=== PATIENT | female | born 1995 | race Caucasian/White ===

== ENCOUNTER 2018-11-09 19:46 | Emergency (ER) | payer OTHER, MEDICAID, SELFPAY ==
[2018-11-09 19:51] VITALS: BP 127/90; PULSE 89; RESP 18; TEMP 37.7; O2SAT 100
--- NOTE | 2018-11-09 22:56 | ED.DENTAL ---
HPI - Dental/Oral General Chief complaint: Dental/Oral Stated complaint: TEETH HURT BAD Time Seen by Provider: 11/09/18 22:56 Source: patient Mode of arrival: ambulatory Limitations: no limitations History of Present Illness HPI Narrative: The patient complains of left maxillary dental pain, exacerbated today. She has no associated facial swelling, or fever. The tooth has had problems previously, she has never followed up with a dentist. There been no fractures to the tooth that the tooth does have a large cavity. She has no associated URI symptoms. She has no sore throat. She has no chest pain or dyspnea. Related Data Home Medications Medication Instructions Recorded Confirmed ACETAMINOPHEN 650 mg PO Q6HP #0 12/31/11 ibuprofen #0 12/31/11 Previous Rx's Medication Instructions Recorded amoxicillin 500 mg PO TID #26 cap 11/09/18 ibuprofen 600 mg PO Q6-8H PRN #30 tab 11/09/18 Allergies Allergy/AdvReac Type Severity Reaction Status Date / Time No Known Drug Allergies Allergy Verified 11/09/18 19:54 Review of Systems Constitutional Denies anorexia, Denies chills and Denies fever(s) ENT Ears, Nose, Mouth, and Throat: Reports as per HPI (Dental pain) and Denies sore throat Cardiovascular Denies chest pain PFSH Medical History (Updated 11/09/18 @ 23:09 by Noah Christianson MD) No active medical problems (Acute) Surgical History (Updated 11/09/18 @ 23:05 by Noah Christianson MD) No pertinent past surgical history (Acute) Social History Smoking Status: Current every day smoker Social History Smoking Status: Current every day smoker Exam Initial Vital Signs Initial Vital Signs: Vital Signs Temperature 99.8 F H 11/09/18 19:51 Pulse Rate 89 11/09/18 19:51 Respiratory Rate 18 11/09/18 19:51 Blood Pressure 127/90 11/09/18 19:51 Pulse Oximetry 100 11/09/18 19:51 Const General: cooperative and well developed Nutritional Appearance: well nourished Orientation: alert, awake and oriented x3 HENMT Head: normocephalic and atraumatic Face and sinus: sinuses nontender and dry mucous membranes Mouth: oral mucosae normal and lip normal Teeth and gingiva: caries (Tooth 14. Pain with palpation of the tooth consistent with dental abscess.) Throat: posterior oropharynx normal, tonsils normal and uvula midline Cardio Rate: regular rate Rhythm: regular rhythm Heart Sounds: no click, no gallops, no murmurs and no rubs Course Course Narrative: The patient was given Toradol IM for pain. She was started on Amoxicillin and discharged on Amoxicillin and Ibuprofen. Vital Signs - 8 hr 11/09/18 19:51 Temperature 99.8 F H Pulse Rate 89 Respiratory Rate 18 Blood Pressure 127/90 Pulse Oximetry 100 Discharge Plan Departure Patient Disposition: Home Clinical Impression: Dental abscess Instructions: Tooth Abscess Activity Restrictions/Additional Instructions: Some amoxicillin 500 mg 3 times daily. Motrin every 6 hours as needed for pain. Apply ice packs to the left face frequently for the next 2-3 days, until pain is improved. Arrange follow-up with a dentist in about 2 weeks. Return the ER for increasing pain, or facial swelling. Prescriptions: New amoxicillin 500 mg capsule 500 mg PO TID Qty: 26 RF: 0 ibuprofen 600 mg tablet 600 mg PO Q6-8H PRN (Reason: pain) Qty: 30 RF: 0 No Action ACETAMINOPHEN 650 mg PO Q6HP Qty: 0 RF: 0 ibuprofen 200 MG tablet Qty: 0 RF: 0
[2018-11-09] MEDS: KETOROLAC 60 MG/2 ML VIAL IM (23:10)
[2018-11-09] MEDS: AMOXICILLIN 250 MG PREPACK 1 BOTTLE MISC (23:10)
[2018-11-09 23:17] VITALS: BP 116/60; PULSE 55; RESP 16; TEMP 36.4; O2SAT 100
== END 2018-11-09 23:17 | disposition home or self-care (01) ==
PROVIDERS: Emergency Provider Emergency Medicine
DX: K04.7 Periapical abscess without sinus (principal); K08.89 Other specified disorders of teeth and supporting structures
CPT/HCPCS: 96372; 99282; 99283; J1885

== ENCOUNTER 2018-11-10 14:00 | Emergency (ER) | payer OTHER, MEDICAID, SELFPAY ==
[2018-11-10 14:44] VITALS: BP 125/81; PULSE 66; RESP 18; TEMP 36.7; O2SAT 100
--- NOTE | 2018-11-10 15:21 | ED.DENTAL ---
HPI - Dental/Oral <Ashia Hui PA-C - Last Filed: 11/10/18 21:28> General Chief complaint: Dental/Oral Stated complaint: abscess tooth Time Seen by Provider: 11/10/18 14:57 Source: patient Mode of arrival: ambulatory Limitations: no limitations History of Present Illness HPI Narrative: This 23-year-old female who was seen here last night for dental pain/infection returns due to increased pain. she did start amoxicillin and has been taking ibuprofen. She states that she left work about 40 minutes early today due to the tooth hurting more. She states that she has not had any new swelling, fever, drainage from the gums or any other new symptoms. She states that she did call dentist today and was told she can be seen at [facility] in [place], as long she is there by 7 Related Data Previous Rx's Medication Instructions Recorded amoxicillin 500 mg PO TID #26 cap 11/09/18 ibuprofen 600 mg PO Q6-8H PRN #30 tab 11/09/18 Allergies Allergy/AdvReac Type Severity Reaction Status Date / Time No Known Drug Allergies Allergy Verified 11/10/18 14:44 Review of Systems <Ashia Hui PA-C - Last Filed: 11/10/18 21:28> Review of Systems ROS Unobtainable: All systems reviewed & are unremarkable except as noted in HPI and below PFSH <Ashia Hui PA-C - Last Filed: 11/10/18 21:28> Medical History No active medical problems (Acute) Surgical History No pertinent past surgical history (Acute) Social History Smoking Status: Current every day smoker Social History Smoking Status: Current every day smoker Exam <Ashia Hui PA-C - Last Filed: 11/10/18 21:28> Narrative Exam Narrative: General: Patient sitting comfortably, appears well HEENT: PERRL, EOMI, TMs intact with normal light reflexes, normal oropharynx, there is a partial break in the posterior part of the left upper molar, and she is tender there as well as in the surrounding gum tissue. There is no erythema, localized fluctuance or drainage from the gums NECK: Supple, normal range of motion, no masses Initial Vital Signs Initial Vital Signs: Vital Signs Temperature 98.0 F 11/10/18 14:44 Pulse Rate 66 11/10/18 14:44 Respiratory Rate 18 11/10/18 14:44 Blood Pressure 125/81 11/10/18 14:44 Pulse Oximetry 100 11/10/18 14:44 <Laura Smith DO - Last Filed: 11/13/18 20:44> Initial Vital Signs Initial Vital Signs: Vital Signs Temperature 98.0 F 11/10/18 14:44 Pulse Rate 66 11/10/18 14:44 Respiratory Rate 18 11/10/18 14:44 Blood Pressure 125/81 11/10/18 14:44 Pulse Oximetry 100 11/10/18 14:44 Course <Ashia Hui PA-C - Last Filed: 11/10/18 21:28> Vital Signs - 8 hr 11/10/18 14:44 Temperature 98.0 F Pulse Rate 66 Respiratory Rate 18 Blood Pressure 125/81 Pulse Oximetry 100 <DO Ramos Cameron Last Filed: 11/13/18 20:44> Vital Signs - 8 hr 11/10/18 14:44 Temperature 98.0 F Pulse Rate 66 Respiratory Rate 18 Blood Pressure 125/81 Pulse Oximetry 100 Discharge Plan Departure Patient Disposition: Home Clinical Impression: Pain, dental Discharge Date/Time: 11/10/18 15:42 Interventions: ED Discharge Assessment Last Done: 11/10/18 15:41 Instructions: DI for Dental Pain Activity Restrictions/Additional Instructions: Your gums seen tender but do not appear very inflamed right now, however the tooth where you are hurting is irregular/broken and that is close to the gum line. You may have some of the pulpy part of the tooth where the nerves are exposed, and that can be quite painful. For now, please continue the ibuprofen and amoxicillin (that has not had much time to start working at as it takes about 48-72 hours), and when you leave here please go by a pharmacy and worm picker some Orajel or similar topical anesthetic which you can put around the broken tooth. [facility] go [facility] to [facility] as you have planned Prescriptions: No Action amoxicillin 500 mg capsule 500 mg PO TID Qty: 26 RF: 0 ibuprofen 600 mg tablet 600 mg PO Q6-8H PRN (Reason: pain) Qty: 30 RF: 0 Referrals: [facility] [Provider Group] <Laura Smith DO - Last Filed: 11/13/18 20:44> Cosign ED Attending Cosjadature Attestation: I was immediately available in the department for consultation. This documentation has been reviewed and I agree with assessment and plan. Supervised by Laura Smith DO
--- NOTE | 2018-11-10 15:39 | ED_ITS ---
HPI - Dental/Oral <Ashia Hui PA-C - Last Filed: 11/10/18 21:28> General Chief complaint: Dental/Oral Stated complaint: abscess tooth Time Seen by Provider: 11/10/18 14:57 Source: patient Mode of arrival: ambulatory Limitations: no limitations History of Present Illness HPI Narrative: This 23-year-old female who was seen here last night for dental pain/infection returns due to increased pain. she did start amoxicillin and has been taking ibuprofen. She states that she left work about 40 minutes early today due to the tooth hurting more. She states that she has not had any new swelling, fever, drainage from the gums or any other new symptoms. She states that she did call dentist today and was told she can be seen at [facility] in [place], as long she is there by 7 Related Data Previous Rx's Medication Instructions Recorded amoxicillin 500 mg PO TID #26 cap 11/09/18 ibuprofen 600 mg PO Q6-8H PRN #30 tab 11/09/18 Allergies Allergy/AdvReac Type Severity Reaction Status Date / Time No Known Drug Allergies Allergy Verified 11/10/18 14:44 Review of Systems <Ashia Hui PA-C - Last Filed: 11/10/18 21:28> Review of Systems ROS Unobtainable: All systems reviewed & are unremarkable except as noted in HPI and below PFSH <Ashia Hui PA-C - Last Filed: 11/10/18 21:28> Medical History No active medical problems (Acute) Surgical History No pertinent past surgical history (Acute) Social History Smoking Status: Current every day smoker Social History Smoking Status: Current every day smoker Exam <Ashia Hui PA-C - Last Filed: 11/10/18 21:28> Narrative Exam Narrative: General: Patient sitting comfortably, appears well HEENT: PERRL, EOMI, TMs intact with normal light reflexes, normal oropharynx, there is a partial break in the posterior part of the left upper molar, and she is tender there as well as in the surrounding gum tissue. There is no erythema, localized fluctuance or drainage from the gums NECK: Supple, normal range of motion, no masses Initial Vital Signs Initial Vital Signs: Vital Signs Temperature 98.0 F 11/10/18 14:44 Pulse Rate 66 11/10/18 14:44 Respiratory Rate 18 11/10/18 14:44 Blood Pressure 125/81 11/10/18 14:44 Pulse Oximetry 100 11/10/18 14:44 <Laura Smith DO - Last Filed: 11/13/18 20:44> Initial Vital Signs Initial Vital Signs: Vital Signs Temperature 98.0 F 11/10/18 14:44 Pulse Rate 66 11/10/18 14:44 Respiratory Rate 18 11/10/18 14:44 Blood Pressure 125/81 11/10/18 14:44 Pulse Oximetry 100 11/10/18 14:44 Course <Ashia Hui PA-C - Last Filed: 11/10/18 21:28> Vital Signs - 8 hr 11/10/18 14:44 Temperature 98.0 F Pulse Rate 66 Respiratory Rate 18 Blood Pressure 125/81 Pulse Oximetry 100 <DO Ramos Cameron Last Filed: 11/13/18 20:44> Vital Signs - 8 hr 11/10/18 14:44 Temperature 98.0 F Pulse Rate 66 Respiratory Rate 18 Blood Pressure 125/81 Pulse Oximetry 100 Discharge Plan Departure Patient Disposition: Home Clinical Impression: Pain, dental Discharge Date/Time: 11/10/18 15:42 Interventions: ED Discharge Assessment Last Done: 11/10/18 15:41 Instructions: DI for Dental Pain Activity Restrictions/Additional Instructions: Your gums seen tender but do not appear very inflamed right now, however the tooth where you are hurting is irregular/broken and that is close to the gum line. You may have some of the pulpy part of the tooth where the nerves are exposed, and that can be quite painful. For now, please continue the ibuprofen and amoxicillin (that has not had much time to start working at as it takes about 48-72 hours), and when you leave here please go by a pharmacy and picker/puller some Orajel or similar topical anesthetic which you can put around the broken tooth. Please go right to [facility] as you have planned Prescriptions: No Action amoxicillin 500 mg capsule 500 mg PO TID Qty: 26 RF: 0 ibuprofen 600 mg tablet 600 mg PO Q6-8H PRN (Reason: pain) Qty: 30 RF: 0 Referrals: [facility] [Provider Group] <Laura Smith DO - Last Filed: 11/13/18 20:44> Cosign ED Attending Cosjadature Attestation: I was immediately available in the department for consultation. This documentation has been reviewed and I agree with assessment and plan. Supervised by Laura Smith DO
== END 2018-11-10 15:42 | disposition home or self-care (01) ==
PROVIDERS: Emergency Provider Internal Medicine
DX: K08.89 Other specified disorders of teeth and supporting structures (principal)
CPT/HCPCS: 99282

== ENCOUNTER → 2019-03-11 09:13 | Outpatient (CLI) | payer OTHER, MEDICAID, SELFPAY ==
[2019-03-11 10:18] LABS: HCG Quantitative /Beta subunit 8488.9 mIU/mL
== END ==
PROVIDERS: Visit Provider Physician Assistant
DX: Z32.01 Encounter for pregnancy test, result positive (principal)
CPT/HCPCS: 36415; 84702

== ENCOUNTER → 2019-09-10 08:32 | Outpatient (CLI) | payer OTHER, MEDICAID, SELFPAY ==
[2019-09-10 08:50] LABS: Bacteria Urine None Seen; RBC Urine None Seen (0-5/HPF)
[2019-09-10 10:31] LABS: Appearance Urine UA CLEAR; Bilirubin Urine UA NEGATIVE (NEGATIVE); Color Urine UA YELLOW; Glucose Urine UA NEGATIVE (Negative); Ketones Urine UA NEGATIVE (NEGATIVE); Leukocyte Esterase Urine UA TRACE (NEGATIVE); Nitrite Urine UA NEGATIVE (Negative); Occult Blood Urine UA NEGATIVE (Negative); Protein Urine UA NEGATIVE (Negative); Urobilinogen Urine UA 0.2 E.U./dL (0.2)
[2019-09-10 10:44] LABS: Squamous Epithelial Cell Urine 5-10 /HPF (0-5/HPF); WBC Urine 5-10/HPF (0-5/HPF)
[2019-09-10 10:53] LABS: Hematocrit 40.3 % (36-46); Hemoglobin 13.4 g/dL (12.0-16.0); Mean Corpuscular HGB Conc 33.3 % (30-36); Mean Corpuscular Hemoglobin 29.9 PG (26-34); Mean Corpuscular Volume 89.7 fL (80-100); Platelet Count 247 X10^3/uL (150-400); Red Blood Cell Count 4.49 X10^6/uL (4.0-5.2); Red Cell Distribution Width 12.5 % (11.6-14.8); White Blood Cell Count 7.6 X10^3/uL (4.5-11.0)
[2019-09-10 11:07] LABS: Alanine Aminotransferase 13 IU/L (<35); Albumin 4.2 g/dL (3.5-5.0); Albumin Globulin Ratio 1.4 (1.0-2.8); Alkaline Phosphatase 62 U/L (38-126); Aspartate Aminotransferase 23 IU/L (14-36); BUN Creatinine Ratio 17.1 (6-22); Bilirubin Total 0.3 mg/dL (0.2-1.3); Blood Urea Nitrogen 12 mg/dL (7-17); Calcium 9.5 mg/dL (8.4-10.2); Carbon Dioxide 27 mmol/L (22-32); Chloride 105 mmol/L (98-107); Cholesterol 126 mg/dL (140-199); Estimated Glomerular Filt Rate > 60.0 mL/min (>60); Globulin 3.1 g/dL (1.7-4.1); Glucose 89 mg/dL (70-100); HDL Cholesterol 41 mg/dL (40-60); HEMOLYSIS < 15 (0-50); LDL Cholesterol Calculated 57 mg/dL (<100); Potassium 4.1 mmol/L (3.4-5.1); Sodium 141 mmol/L (137-145); Total Protein 7.3 g/dL (6.3-8.2); Triglycerides 140 mg/dL (35-150)
== END ==
PROVIDERS: PCP Nurse Practitioner Family; Referring Provider Nurse Practitioner Family; Visit Provider Nurse Practitioner Family
DX: Z00.00 Encounter for general adult medical examination without abnormal findings (principal); Z13.6 Encounter for screening for cardiovascular disorders
CPT/HCPCS: 36415; 80053; 80061; 81001; 85027

== ENCOUNTER 2019-09-20 23:19 | Emergency (ER) | payer OTHER, MEDICAID, SELFPAY ==
[2019-09-20 23:24] VITALS: BP 141/85; PULSE 80; RESP 18; TEMP 36.3; O2SAT 99
--- NOTE | 2019-09-20 23:30 | PC.NURSE ---
patient states she was seen in urgent care and prescribed ammoxicillin. She states she has not missed a dose and has three more days left. Comes in today with increased pain in tooth #32 after eating a cracker. The tooth appears to be half broken off with root/nerve showing. Provider at bedside.
--- NOTE | 2019-09-20 23:41 | ED_ITS ---
HPI - General Adult General Chief complaint: Dental/Oral Stated complaint: painful teeth right side Time Seen by Provider: 09/20/19 23:26 Source: patient Mode of arrival: Ambulatory Limitations: no limitations History of Present Illness HPI narrative: 24-year-old female here for evaluation of right lower back tooth pain. Approximately 1 week ago was seen in urgent care and was given antibiotics. She states she was eating something earlier today and felt more pain in this back tooth. She has not seen a dentist yet for her symptoms. Came in because of the increased pain. Related Data Previous Rx's Medication Instructions Recorded ibuprofen 600 mg PO Q6-8H PRN #30 tab 11/09/18 clindamycin phosphate 1 % topical 1 applictn TOP DAILY #30 gram 09/09/19 gel drospirenone 3 mg-ethinyl 1 tab PO DAILY #84 tab 09/09/19 estradiol 0.03 mg tablet Allergies Allergy/AdvReac Type Severity Reaction Status Date / Time No Known Drug Allergies Allergy Verified 09/10/19 10:45 Review of Systems Constitutional Constitutional: Denies fever(s) and Denies headache(s) ENT Ears, Nose, Mouth, and Throat: Reports dental pain, Denies headache(s), Denies sore throat and Denies throat swelling Cardiovascular Cardiovascular: Denies dyspnea Respiratory Respiratory: Denies dyspnea Integumentary/Breasts Skin/Breast: Denies rash Neurologic Neurologic: Denies headache(s) Hematologic/Lymphatic Hematologic/Lymphatic: Denies easy bleeding and Denies easy bruising Allergic/Immunologic Allergic/Immunologic: Denies throat swelling Patient History Medical History Encounter for surveillance of contraceptive pills (Acute) Gout (Inactive ~2013) No active medical problems (Acute) Surgical History No pertinent past surgical history (Acute) Social History Smoking Status: Former smoker second hand exposure: Yes alcohol intake: never substance use type: does not use Smoking Status: Former smoker alcohol intake frequency: 0-2 drinks per day Substance Use Type: does not use Exam Initial Vital Signs Initial Vital Signs: Vital Signs Temperature 97.4 F L 09/20/19 23:24 Pulse Rate 80 09/20/19 23:24 Respiratory Rate 18 09/20/19 23:24 Blood Pressure 141/85 H 09/20/19 23:24 Pulse Oximetry 99 09/20/19 23:24 Const General: cooperative Limitations: mental status not altered HENMT Head: normal to inspection and normocephalic Nose: external nose normal Teeth and gingiva: caries (Right bottom 3rd molar) Resp Effort & Inspection: normal respiratory effort Skin Lesions: no lesions Rashes: no rashes Neuro General: alert and awake Extrem General: normal to inspection and capillary refill normal Course Orders Ordered: Discontinued Medications Acetaminophen/Codeine Phosphate (Tylenol #3 Prepack) 1 bottle MISC SEEINSTR ONE Stop: 09/20/19 23:41 Last Admin: 09/20/19 23:49 Dose: 1 bottle Documented by: VAUGHN Vital Signs Vital signs: Vital Signs - 8 hr 09/20/19 23:24 Temperature 97.4 F L Pulse Rate 80 Respiratory Rate 18 Blood Pressure 141/85 H Pulse Oximetry 99 Medical Decision Making [facility] Narrative Medical decision making narrative: The bottom right 3rd molar does appear to have a portion of the tooth missing. A temporary dental packing was placed over the area. Patient was informed that this is not necessarily a permanent issue. She was instructed she need to continue to take the antibiotics and needed to follow-up with a dentist for definitive treatment. If you wrist understanding and agreement plan. Discharge Plan Departure Patient Disposition: Home Clinical Impression: Toothache Discharge Date/Time: 09/20/19 23:53 Instructions: DI for Dental Pain Activity Restrictions/Additional Instructions: Continue the antibiotics as directed. Use the pain medication as needed. It is important that you follow-up with the dentist for definitive treatment. Return to the emergency department for any new or worsening symptoms Prescriptions: No Action drospirenone-ethinyl estradiol [Viry (28)] 3-0.03 mg tablet 1 tab PO DAILY Qty: 84 RF: 3 clindamycin phosphate 1 % gel 1 applictn TOP DAILY Qty: 30 RF: 2 ibuprofen 600 mg tablet 600 mg PO Q6-8H PRN (Reason: pain) Qty: 30 RF: 0 Referrals: Liliya Norton ARNP [Primary Care Provider] -
[2019-09-20] MEDS: CODEINE/APAP 30/300 PREPACK 1 BOTTLE MISC (23:49)
== END 2019-09-20 23:53 | disposition home or self-care (01) ==
PROVIDERS: Emergency Provider Emergency Medicine; PCP Nurse Practitioner Family
DX: K08.89 Other specified disorders of teeth and supporting structures (principal)
CPT/HCPCS: 99281

== ENCOUNTER → 2020-04-19 13:30 | Outpatient (CLI) | payer OTHER, MEDICAID, SELFPAY ==
--- NOTE | 2020-04-19 13:31 | DI.US.S_ITS ---
PROCEDURE: US PERIPH VENOUS LOW EXTREM LT INDICATIONS: possible dvt TECHNIQUE: Real-time imaging, as well as color and pulse Doppler interrogation, were performed of the lower extremity deep veins from the inguinal ligament to the popliteal fossa. COMPARISON: None. FINDINGS: The common femoral, femoral and popliteal veins are normally compressible, and free of intraluminal thrombus. Color and pulse Doppler demonstrate normal phasic intraluminal flow. There is normal augmentation response to distal compression maneuver. IMPRESSION: No evidence of deep vein thrombosis involving the left lower extremity. Dictated by: Kady Edwards MD, PhD on 04/19/2020 at 14:11 Approved by: Kady Edwards MD, PhD on 04/19/2020 at 14:11
== END ==
PROVIDERS: PCP Nurse Practitioner Family; Referring Provider Nurse Practitioner Family; Visit Provider Physician Assistant
DX: R22.42 Localized swelling, mass and lump, left lower limb (principal)
CPT/HCPCS: 93971

== ENCOUNTER 2021-02-08 13:21 | Emergency (ER) | payer OTHER, MEDICAID, SELFPAY ==
[2021-02-08 13:24] VITALS: BP 134/90; PULSE 63; RESP 16; TEMP 36.2; O2SAT 100
--- NOTE | 2021-02-08 13:33 | ED_ITS ---
HPI - Dental/Oral <Chelly Hardy PA-C - Last Filed: 02/08/21 15:44> General Chief complaint: Dental/Oral Stated complaint: Top Right Side Tooth Pain Time Seen by Provider: 02/08/21 13:23 Source: patient Mode of arrival: Ambulatory Limitations: no limitations History of Present Illness HPI Narrative: 25-year-old female without PMH who presents to the ER complaining of acute onset sharp, constant right upper tooth pain that began this morning. She is scheduled with a dentist in 4 days but the pain did not respond to Tylenol or aspirin that she took this morning so presented for evaluation. Reports prior occurrence of dental abscess and states it feels similar. Denies sore throat, fever, jaw pain, trismus, or additional symptoms. Teeth map: 1. Discomfort with palpation of the #2 tooth and along the medial and lateral gum lines. No visualized dental caries, trauma, or defect to the tooth. Related Data Previous Rx's Medication Instructions Recorded L norgest/E estradiol-E estrad 1 tab PO DAILY #182 ea 11/22/20 0.15 mg-30 mcg (84)/10 mcg(7) tabs,3mos (Seasonique) penicillin V potassium 500 mg 500 mg PO QID 7 Days #28 tab 02/08/21 tablet Allergies Allergy/AdvReac Type Severity Reaction Status Date / Time No Known Drug Allergies Allergy Verified 02/08/21 13:26 Review of Systems <Chelly Hardy PA-C - Last Filed: 02/08/21 15:44> Review of Systems Narrative: General: denies fever, chills Head/Neck: denies headache, neck pain Eyes: denies visual changes, eye pain Mouth: Reports dental pain, denies dental trauma Cardio: denies chest pain, palpitations Respiratory: denies shortness of breath, cough GI: denies abdominal pain, nausea, vomiting, or diarrhea : denies dysuria, hematuria MSK: denies joint pain, muscle weakness Skin: denies rash, itching Neuro: denies LOC, numbness, tingling, loss of sensory/motor function Patient History <Chelly Hardy PA-C - Last Filed: 02/08/21 15:44> Medical History Benign positional vertigo (10/2019) Breakthrough bleeding Encounter for long-term current use of medication Encounter for surveillance of contraceptive pills Encounter for wellness examination in adult (11/22/20) Gout (~2013) No active medical problems Surgical History No pertinent past surgical history Social History Smoking Status: Current every day smoker second hand exposure: Yes alcohol intake: never substance use type: does not use Smoking Status: Current every day smoker tobacco type: vaping alcohol intake frequency: 0-2 drinks per day Substance Use Type: does not use Exam <Chelly Hardy PA-C - Last Filed: 02/08/21 15:44> Narrative Exam Narrative: Independently reviewed vitals signs and nursing notes. General: Awake, alert, nontoxic, no cardiorespiratory distress Head/Neck: Atraumatic, neck full range of motion Eyes: EOMI, conjunctiva normal Nose: nares patent, no rhinorrhea Mouth/Throat: Discomfort with palpation of the #2 tooth and along the medial and lateral gum lines. No visualized dental caries, trauma, or defect to the tooth. Moist mucus membranes, posterior pharynx normal, no oral lesions Cardio: Regular rate and rhythm, no peripheral edema Respiratory: respirations unlabored without wheezing, stridor, or rales. No retractions. GI: Abdomen soft, nontender MSK: Moves all extremities, neurovascularly intact Skin: Normal capillary refill, no rash Neuro: Normal speech and cognition, normal gait Initial Vital Signs Initial Vital Signs: Vital Signs Temperature 97.1 F L 02/08/21 13:24 Pulse Rate 63 02/08/21 13:24 Respiratory Rate 16 02/08/21 13:24 Blood Pressure 134/90 02/08/21 13:24 Pulse Oximetry 100 02/08/21 13:24 <Ambrocio Price DO - Last Filed: 02/08/21 16:03> Initial Vital Signs Initial Vital Signs: Vital Signs Temperature 97.1 F L 02/08/21 13:24 Pulse Rate 63 02/08/21 13:24 Respiratory Rate 16 02/08/21 13:24 Blood Pressure 134/90 02/08/21 13:24 Pulse Oximetry 100 02/08/21 13:24 Course <Chelly Hardy PA-C - Last Filed: 02/08/21 15:44> Vital Signs Vital signs: Vital Signs - 8 hr 02/08/21 13:24 Temperature 97.1 F L Pulse Rate 63 Respiratory Rate 16 Blood Pressure 134/90 Pulse Oximetry 100 <Ambrocio Price DO - Last Filed: 02/08/21 16:03> Vital Signs Vital signs: Vital Signs - 8 hr 02/08/21 13:24 Temperature 97.1 F L Pulse Rate 63 Respiratory Rate 16 Blood Pressure 134/90 Pulse Oximetry 100 MDM - Dental/Oral <Chelly Hardy PA-C - Last Filed: 02/08/21 15:44> MDM Narrative Medical decision making narrative: Patient is a 25-year-old female with acute onset right upper molar pain presumed to be dental abscess. Tender over the the medial lateral gingiva as well as the affected tooth. 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 Initial ddx to include but not limited to dental trauma, dental abscess, ANUG. Patient initiated on penicillin VK for dental abscess and has follow-up set with dentist in 4 days. Patient is appropriate and amenable to discharge home. Vital signs are stable on repeat examination is unremarkable. Patient has been informed of results. Patient has been given strict return to ER precautions for any new or worsening symptoms. Patient understands to follow up closely with outpatient providers as instructed. Patient understands plan and agrees to discharge home. All questions and concerns answered at this time. Discharge Plan Departure Patient Disposition: Home Clinical Impression: Abscess, dental Instructions: Tooth Abscess, DI for Dental Pain Activity Restrictions/Additional Instructions: *You have been diagnosed with [toothache, dental abscess] *What to do: [X] New medication prescriptions sent to your pharmacy: [[facility] ] [ ] New medication written as a paper prescription [ ] No new medications given * Please follow-up with your dentist as scheduled in 4 days (Friday). Let them know you were seen in the emergency department and that we ask you to be seen in follow-up. * if you do not have a primary care provider, please contact the [facility] Resource line at [phone]. They will ask some questions about your medical history and help to get up with a doctor in the community. * Return to the if you should have any new, worsening, or concerning symptoms, such as [fever, jaw pain, difficulty breathing/swallowing]. Prescriptions: New penicillin V potassium 500 mg tablet 500 mg PO QID 7 Days Qty: 28 RF: 0 No Action L norgest/e.estradiol-e.estrad [Seasonique] 0.15 mg-30 mcg (84)/10 mcg (7) tablets,dose pack,3 month 1 tab PO DAILY Qty: 182 RF: 3 Referrals: Liliya Norton ARNP [Primary Care Provider] - <Ambrocio Price DO - Last Filed: 02/08/21 16:03> Cosign ED Attending Cosignature Attestation: Dr Price Co-Sign Statement: I was available for consultation during this patient's emergency department visit. This chart is signed by myself for administrative purposes only. I did not have direct contact with this patient during this visit. They were seen independently by the APC.
== END 2021-02-08 14:01 | disposition home or self-care (01) ==
PROVIDERS: Emergency Provider Physician Assistant; PCP Nurse Practitioner Family
DX: K04.7 Periapical abscess without sinus (principal)
CPT/HCPCS: 99281

== ENCOUNTER 2022-10-16 16:50 | Emergency (ER) | payer OTHER, MEDICAID, SELFPAY ==
[2022-10-16 17:05] VITALS: BP 101/70; PULSE 74; RESP 18; TEMP 37.2; O2SAT 97; BMI 31.9
--- NOTE | 2022-10-16 17:07 | DI.RAD.S_ITS ---
PROCEDURE: XR FOREARM RT 2V INDICATIONS: fall. forearm/elbow pain TECHNIQUE: 2 views of the forearm were acquired. COMPARISON: None. FINDINGS: Bones: Minimally impacted radial head fracture. Distally the forearm appears intact. Radiocarpal articulation and distal radioulnar joint appear intact. Ulnohumeral joint is intact. Soft tissues: Moderate elbow joint effusion. No radiodense foreign bodies. IMPRESSION: 1. Slightly impacted radial head fracture and elbow joint effusion. Dictated by: Jackelin Elmore M.D. on 10/16/2022 at 18:07 Approved by: Jackelin Elmore M.D. on 10/16/2022 at 18:08
--- NOTE | 2022-10-16 17:07 | DI.RAD.S_ITS ---
PROCEDURE: XR ELBOW RT MIN 3V INDICATIONS: fall. forearm/elbow pain TECHNIQUE: 3 views of the elbow were acquired. COMPARISON: None. FINDINGS: Bones: Impacted radial head fracture. There is subtle widening of the radiocapitellar articulation along the lateral side. This is likely due to impacted radial articular surface. The fracture plane does not definitely extend through the articular surface. Soft tissues: Moderate size joint effusion with displacement of anterior and posterior fat pads. No radiodense foreign body. IMPRESSION: 1. Impacted radial head fracture without intra-articular extension. 2. Slight widening of the radiocapitellar articulation. 3. Moderate-sized joint effusion. Dictated by: Jackelin Elmore M.D. on 10/16/2022 at 18:14 Approved by: Jackelin Elmore M.D. on 10/16/2022 at 18:15
--- NOTE | 2022-10-16 18:04 | PC.NURSE ---
pt states she was playing with her kid and slipped off the curb, caught her fall with her hands outstretched. denies feeling/hearing popping sound. pt currently in sling with ice pack in place
--- NOTE | 2022-10-16 18:49 | ED_ITS ---
HPI - Extremity Injury (Upper) <Divya Lynne PA-C - Last Filed: 10/16/22 20:39> General Chief Complaint: Extremity Injury, Upper Stated Complaint: fell/rt arm feels broken Time Seen by Provider: 10/16/22 18:01 Source: patient Mode of arrival: Ambulatory History of Present Illness HPI narrative: 19-year-old female presents with concern for right elbow pain sustained around 4:00 p.m. today after she was playing with her kids kids and accidentally stepped off a curb wrong falling forward and catching herself with her outstretched hands taking the brunt of her weight with her right arm. She states since that time she is been unable to straighten her right elbow because of the pain. She denies any previous surgery or injury to her right arm states that she is right-handed. Denies numbness or tingling of the affected extremity. Denies any other injury except for minor abrasion to her left hand base but states she did not hit her head or lose consciousness. Related Data Previous Rx's Medication Instructions Recorded L norgest/E estradiol-E estrad 1 tab PO DAILY #182 ea 11/21/21 0.15 mg-30 mcg (84)/10 mcg(7) tabs,3mos (Seasonique) sumatriptan succinate 50 mg tablet See Rx Instructions PO .COMPLEX 01/09/22 (Imitrex) #10 tabs bupropion HCl 150 mg 24 hr tablet, 150 mg PO QAM #30 tabs 05/21/22 extended release (Wellbutrin XL) escitalopram oxalate 20 mg tablet 20 mg PO DAILY #90 tabs 05/21/22 (Lexapro) hydroxyzine pamoate 25 mg capsule 12.5 - 25 mg PO QID PRN anxiety 05/21/22 #90 caps doxycycline hyclate 50 mg tablet 50 mg PO DAILY 4 months #30 tabs 06/24/22 Allergies Allergy/AdvReac Type Severity Reaction Status Date / Time No Known Drug Allergies Allergy Verified 07/14/22 14:13 Review of Systems <Divya Lynne PA-C - Last Filed: 10/16/22 20:39> Review of Systems Narrative: Unremarkable except as noted in the HPI Patient History <Divya Lynne PA-C - Last Filed: 10/16/22 20:39> Medical History Alcohol abuse, 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) Anxiety (12/2020) Benign positional vertigo (10/2019) Breakthrough bleeding Encounter for long-term current use of medication Encounter for surveillance of contraceptive pills Encounter for wellness examination in adult (11/22/20) Gout (~2014) Nicotine addiction (2019) No active medical problems Surgical History No pertinent past surgical history Social History Smoking Status: Former smoker second hand exposure: Yes alcohol intake: never substance use type: does not use Smoking Status: Former smoker tobacco type: vaping alcohol intake frequency: 0-2 drinks per day Substance Use Type: does not use Exam <Divya Lynne PA-C - Last Filed: 10/16/22 20:39> Narrative Exam Narrative: GENERAL: 27 year old patient appears stated age. Well-developed patient, in mild distress. HEAD: Atraumatic. Normocephalic. EYES: Pupils equal round and reactive. Extraocular motions intact. No scleral ic terus. No injection or drainage. ENT: Nose without bleeding, purulent drainage. Airway patent. NECK: Trachea midline. CARDIOVASCULAR: Regular rate and rhythm without murmurs, gallops, or rubs. RESPIRATORY: Clear to auscultation. Breath sounds equal bilaterally. No wheezes, rales, or rhonchi. EXTREMITIES: Superficial abrasion to the base of the left palm. In the affected right extremity patient has normal active range of motion (with increased elbow pain) at the wrist, capillary refill is less than 2 seconds, range of motion of the fingers is intact however she has increased elbow pain w ith flexion-extension active of the fingers, director of global marketing strength is significantly reduced 2nd to pain, she has tenderness over the distal radius, and over the olecranon. The humerus is nontender, shoulder is nontender. No edema or joint tenderness. NEURO: AOx3. SKIN: No rash or erythema of visible areas Initial Vital Signs Initial Vital Signs: Vital Signs Temperature 98.9 F 10/16/22 17:05 Pulse Rate 74 10/16/22 17:05 Respiratory Rate 18 10/16/22 17:05 Blood Pressure 101/70 10/16/22 17:05 Pulse Oximetry 97 10/16/22 17:05 Oxygen Delivery Method Room Air 10/16/22 17:05 <Cory Song DO - Last Filed: 10/17/22 06:53> Initial Vital Signs Initial Vital Signs: Vital Signs Temperature 98.9 F 10/16/22 17:05 Pulse Rate 74 10/16/22 17:05 Respiratory Rate 18 10/16/22 17:05 Blood Pressure 101/70 10/16/22 17:05 Pulse Oximetry 97 10/16/22 17:05 Oxygen Delivery Method Room Air 10/16/22 17:05 Course <Divya Lynne PA-C - Last Filed: 10/16/22 20:39> Orders Ordered: Discontinued Medications Acetaminophen (Acetaminophen 325 Mg Tablet) 975 mg PO NOW ONE Stop: 10/16/22 19:02 Last Admin: 10/16/22 19:09 Dose: 975 mg Documented By: MIGUEL Ibuprofen (Ibuprofen 400 Mg Tablet) 400 mg PO NOW ONE Stop: 10/16/22 19:02 Last Admin: 10/16/22 19:09 Dose: 400 mg Documented By: MIGUEL Vital Signs Vital signs: Vital Signs - 8 hr 10/16/22 17:05 10/16/22 20:32 Temperature 98.9 F Pulse Rate 74 69 Respiratory Rate 18 Blood Pressure 101/70 Pulse Oximetry 97 97 Oxygen Delivery Method Room Air Room Air <Cory Song DO - Last Filed: 10/17/22 06:53> Orders Ordered: Discontinued Medications Acetaminophen (Acetaminophen 325 Mg Tablet) 975 mg PO NOW ONE Stop: 10/16/22 19:02 Last Admin: 10/16/22 19:09 Dose: 975 mg Documented By: NR Ibuprofen (Ibuprofen 400 Mg Tablet) 400 mg PO NOW ONE Stop: 10/16/22 19:02 Last Admin: 10/16/22 19:09 Dose: 400 mg Documented By: NR Vital Signs Vital signs: Vital Signs - 8 hr 10/16/22 17:05 10/16/22 20:32 Temperature 98.9 F Pulse Rate 74 69 Respiratory Rate 18 Blood Pressure 101/70 Pulse Oximetry 97 97 Oxygen Delivery Method Room Air Room Air MDM - Extremity Injury (Upper) <Divya Lynne PA-C - Last Filed: 10/16/22 20:39> Differential Diagnosis Differential diagnosis: Likely other (Sprain, strain, radial head fracture) Imaging Data Extremity x-ray #1: Radiologist's Impression: [address] [address] XRay Report Signed Patient: Rita Mckeon MR#: [id number] : 1995 Acct:[id number] Age/Sex: 27 / F Date of Service: 10/16/22 Loc: ED Accession Number: [id number] ?? Procedure: XR elbow RT min 3V Ordering Provider: Ambrocio Price D.O. PROCEDURE:? XR ELBOW RT MIN 3V ? INDICATIONS:? fall. forearm/elbow pain ? TECHNIQUE:? 3 views of the elbow were acquired.? ? COMPARISON:? None. ? FINDINGS:? ? Bones:? Impacted radial head fracture.? There is subtle widening of the radiocapitellar articulation along the lateral side.? This is likely due to impacted radial articular surface.? The fracture plane does not definitely extend through the articular surface. ? Soft tissues:? Moderate size joint effusion with displacement of anterior and posterior fat pads.? No radiodense foreign body. ? ? IMPRESSION:? ? 1. Impacted radial head fracture without intra-articular extension. ? 2. Slight widening of the radiocapitellar articulation. ? 3. Moderate-sized joint effusion.? ? ? Dictated by: Jackelin Elmore M.D. on 10/16/2022 at 18:14 ? ? Approved by: Jackelin Elmore M.D. on 10/16/2022 at 18:15?? Extremity x-ray #2: Radiologist's Impression: [address] [address] XRay Report Signed Patient: Rita Mckeon MR#: [id number] : 1995 Acct:[id number] Age/Sex: 27 / F Date of Service: 10/16/22 Loc: ED Accession Number: [id number] ?? Procedure: XR forearm RT 2V Ordering Provider: Ambrocio Price D.O. PROCEDURE:? XR FOREARM RT 2V ? INDICATIONS:? fall. forearm/elbow pain ? TECHNIQUE:? 2 views of the forearm were acquired.? ? COMPARISON:? None. ? FINDINGS:? ? Bones:? Minimally impacted radial head fracture.? Distally the forearm appears intact.? Radiocarpal articulation and distal radioulnar joint appear intact.? Ulnohumeral joint is intact. ? Soft tissues:? Moderate elbow joint effusion.? No radiodense foreign bodies. ? ? IMPRESSION:? ? 1. Slightly impacted radial head fracture and elbow joint effusion. ? Dictated by: Jackelin Elmore M.D. on 10/16/2022 at 18:07 ? ? Approved by: Jackelin Elmore M.D. on 10/16/2022 at 18:08?? MDM Narrative Medical decision making narrative: Well-appearing 27-year-old right-handed female presents with concern for elbow pain after she fell forward accidentally from a curb and caught herself with her arms outstretched. Did not take anything for pain at home has been icing since coming to the emergency department, patient's exam was concerning for tenderness over the radial head and proximal forearm, as well as reduced director of global marketing strength and range of motion inability to extend at the elbow. Patient's affected extremity is otherwise neurovascularly intact. X-ray reveals a nondisplaced radial head fracture showing slight impaction. Discussed this with the attending physician Dr. Song, who feels it is reasonable to splint and have patient follow-up with Orthopedics, no need to consult them currently. Patient declined strong pain medicine and was agreeable to Tylenol and ibuprofen. Patient placed in a posterior splint. Referral to Orthopedics is placed. Return precautions provided, follow-up plan discussed, all questions answered. Discharge Plan Departure Patient Disposition: Home Clinical Impression: Closed fracture of radial head, Pain in right elbow Instructions: DI for Elbow Fracture Activity Restrictions/Additional Instructions: Thank you for letting us be part of your care today in the emergency department. Your x-ray showed that you have a nondisplaced slightly impacted radial head fracture, this likely explains her pain and difficulty performing range of motio n of the elbow, we have placed do in a posterior splint, it is important that you keep this dry you will have to cover it with a bag and rubber-band to shower, you will also need to follow up with Orthopedics as an outpatient, you will not necessarily require surgery but you can discuss this with Orthopedics when you see them in clinic. 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 There is no evidence of an emergent or life threatening illness at this time, but follow up with your doctor in 1-2 days is recommended nonetheless to continue to rule out serious underlying causes of your symptoms. Please call the office for an appointment. Please return to the Emergency Department for any worsening or persistent symptoms. Please take medications as directed. Prescriptions: No Action L norgest/e.estradiol-e.estrad [Seasonique] 0.15 mg-30 mcg (84)/10 mcg (7) tablets,dose pack,3 month 1 tab PO DAILY Qty: 182 3RF doxycycline hyclate 50 mg tablet 50 mg PO DAILY 120 Days Qty: 30 3RF sumatriptan succinate [Imitrex] 50 mg tablet See Rx Instructions PO .COMPLEX Qty: 10 3RF Rx Instructions: take 1 tab at onset of headache; if no relief may repeat 1 tab after at least 2 hrs; max = 4 tabs/24 hr PO escitalopram oxalate [Lexapro] 20 mg tablet 20 mg PO DAILY Qty: 90 3RF bupropion HCl [Wellbutrin XL] 150 mg tablet extended release 24 hr 150 mg PO QAM Qty: 30 11RF hydroxyzine pamoate 25 mg capsule 12.5 - 25 mg PO QID PRN (Reason: anxiety) Qty: 90 11RF Referrals: Chun Green ARNP [Primary Care Provider] - Dequan Kapadia MD [Physician] - (radial head fx) Stand Alone Forms: Patient Portal/API, Work Release Note <Cory Song DO - Last Filed: 10/17/22 06:53> Cosign ED Attending Julianaature Attestation: I was immediately available in the department for consultation. Documentation has been reviewed. I agree with assessment and plan.
[2022-10-16] MEDS: IBUPROFEN 400 MG TABLET PO (19:09)
[2022-10-16] MEDS: ACETAMINOPHEN 325 MG TABLET 975 MG PO (19:09)
[2022-10-16 20:32] VITALS: PULSE 69; O2SAT 97
== END 2022-10-16 20:34 | disposition home or self-care (01) ==
PROVIDERS: Emergency Provider Student in an Organized Health Care Education/Training Program; PCP Registered Nurse Diabetes Educator
DX: S52.121A Displaced fracture of head of right radius, initial encounter for closed fracture (principal); W18.30XA Fall on same level, unspecified, initial encounter
CPT/HCPCS: 73080; 73090; 99283

== ENCOUNTER → 2023-08-29 14:08 | Outpatient (CLI) | payer OTHER, MEDICAID, SELFPAY ==
[2023-08-29 19:56] LABS: Urine N gonorrhoeae NOT DETECTED
[2023-08-29 20:06] LABS: Urine Chlamydia NOT DETECTED
== END ==
PROVIDERS: PCP Registered Nurse Diabetes Educator; Visit Provider Student in an Organized Health Care Education/Training Program
DX: Z11.3 Encounter for screening for infections with a predominantly sexual mode of transmission (principal)
CPT/HCPCS: 87491; 87591

== ENCOUNTER → 2023-09-26 10:49 | Outpatient (CLI) | payer OTHER, MEDICAID, SELFPAY ==
[2023-09-26 11:16] LABS: Specimen Label NATERA
[2023-09-26 12:25] LABS: Add Manual Diff / Slide Review NO; Basophils Absolute Auto 0 /uL (0-100); Basophils Percent Auto 0.2 % (0-2); Eosinophils Absolute Auto 200 /uL (0-450); Eosinophils Percent Auto 1.9 % (2-4); Hematocrit 37.4 % (36-46); Hemoglobin 12.7 g/dL (12.0-16.0); Lymphocytes Absolute Auto 2500 /uL (1100-4500); Lymphocytes Percent Auto 24.9 % (25-40); Mean Corpuscular HGB Conc 33.9 % (30-36); Mean Corpuscular Volume 88.6 fL (80-100); Monocytes Absolute Auto 600 /uL (0-900); Monocytes Percent Auto 6.5 % (3-14); Neutrophils Absolute Auto 6700 /uL (1500-7000); Neutrophils Percent Auto 66.5 % (50-75); Platelet Count 263 X10^3/uL (150-400); Red Blood Cell Count 4.22 X10^6/uL (4.0-5.2); Red Cell Distribution Width 13.2 % (11.6-14.8)
[2023-09-27 10:30] LABS: RPR Screen Non Reactive (Non Reactive); Varicella IgG Antibody 2095 index (Immune >165)
[2023-09-29 15:49] LABS: Hepatitis B Surface Antigen NEGATIVE s/c (NEGATIVE); Rubella Antibody IgG 27.6 IU/mL (>15)
[2023-09-29 16:08] LABS: HIV 1 & 2 Ab/Ag 4th Gen Combo NEGATIVE (NEGATIVE); Hep C Virus Ab w/Reflex Quant NEGATIVE s/c (NEGATIVE)
== END ==
PROVIDERS: PCP Registered Nurse Diabetes Educator; Referring Provider Student in an Organized Health Care Education/Training Program; Visit Provider Student in an Organized Health Care Education/Training Program
DX: Z34.80 Encounter for supervision of other normal pregnancy, unspecified trimester (principal)
CPT/HCPCS: 80055; 86787; 86803; 86850; 86900; 86901; 87086; 87389

== ENCOUNTER → 2023-11-21 14:16 | Outpatient (CLI) | payer OTHER, MEDICAID, SELFPAY | PROVIDERS: PCP Registered Nurse Diabetes Educator; Referring Provider Student in an Organized Health Care Education/Training Program; Visit Provider Student in an Organized Health Care Education/Training Program | DX: Z34.02 Encounter for supervision of normal first pregnancy, second trimester (principal); Z3A.15 15 weeks gestation of pregnancy | CPT/HCPCS: 36415; 82105 ==

== ENCOUNTER → 2023-11-27 12:33 | Outpatient (CLI) | payer OTHER, MEDICAID, SELFPAY ==
--- NOTE | 2023-11-27 12:34 | DI.US.S_ITS ---
PROCEDURE: US OB >= 14 WEEKS FETUS INDICATIONS: anatomy scan OUTSIDE/PRIOR DATING DATA: Last menstrual period (LMP): 07/26/2023. LMP-based estimated date of delivery (ALEXSANDRA): 04/11/2024. First dating scan (date and location): 09/26/2023. Estimated date of delivery (ALEXSANDRA) from first dating scan: 04/11/2024. The calculations are made using the clinical ALEXSANDRA of 04/11/2024. TECHNIQUE: Real-time scanning was performed of the fetus, with image documentation and biometric measurements. Endovaginal scanning: Not performed COMPARISON: None. FINDINGS: General: A single living intrauterine gestation is present. Presentation: Variable. Placenta: Placental position is posterior , without previa. Amniotic fluid index: 15.1 cm, normal range is 5-24 cm. Single deepest vertical pocket is 4.7 cm. heart rate: 157 beats per minute. Maternal cervical canal: 4.4 cm long. Normal lower limit is 2.5 cm. biometrics: Biparietal diameter: 4.8 centimeters, 20 weeks 2 days Head circumference: 18.2 centimeters, 20 weeks 4 days Abdominal circumference: 16.7 centimeters, 21 weeks 5 days Femur length: 3.6 centimeters, 21 weeks 2 days Clinically estimated gestational age: 20 weeks 4 days Composite gestational age from present scan: 21 weeks 0 days Estimated weight and percentile: 420 grams, 86th percentile Anatomic survey: Neuro: Ventricles are non-dilated at less than 10 mm. Cisterna magna is normal at 3-11 mm. Cerebellum is normal in size and morphology. Nuchal skin fold: Normal at less than 6 mm between 14-21 weeks gestational age. Face: Nose and lips, facial profile are normal. Spine: No evidence for spina bifida. Heart: 4-chambered heart is present. Left ventricular outflow tract not well visualized. Diaphragm: Diaphragm is intact. Stomach: Left-sided stomach is present. Kidneys: No hydronephrosis. Normal is less than 5 mm in 2nd trimester, less than 7 mm in 3rd trimester. Cord: 3-vessel cord has orthotopic insertion. Bladder: Normal in size. Extremities: All 4 extremities identified. IMPRESSION: Single living intrauterine at 20 weeks 4 days, ALEXSANDRA of 04/11/2024. Left ventricular outflow tract not well visualized. Short-term follow-up is indicated. Otherwise, normal anatomy survey. Estimated weight of 420 grams, 86 percentile. We strive to produce accurate, complete, and clear reports of imaging services. To assist us in improving patient care, this report was composed using standard report templates and voice recognition software. Therefore, it may contain abnormal punctuation, insertions and/or omissions. Occasional wrong-word or sound-alike substitutions may occur. Though we review the report and make efforts to correct it, we do recommend that the report be read carefully in proper context to recognize any text inaccuracies. Dictated by: Raúl Osborn M.D. on 11/27/2023 at 15:38 Approved by: Raúl Osborn M.D. on 11/27/2023 at 15:43
== END ==
PROVIDERS: PCP Registered Nurse Diabetes Educator; Referring Provider Student in an Organized Health Care Education/Training Program; Visit Provider Student in an Organized Health Care Education/Training Program
DX: Z34.82 Encounter for supervision of other normal pregnancy, second trimester (principal); Z3A.20 20 weeks gestation of pregnancy
CPT/HCPCS: 76811

== ENCOUNTER → 2023-12-08 07:56 | Outpatient (CLI) | payer OTHER, MEDICAID, SELFPAY ==
--- NOTE | 2023-12-08 07:56 | DI.US.S_ITS ---
PROCEDURE: US OB FOLLOW UP INDICATIONS: Left ventricular outflow tract not well visualized. OUTSIDE/PRIOR DATING DATA: Last menstrual period (LMP): July 26, 2023. LMP-based estimated date of delivery (ALEXSANDRA): April 11, 2024 First dating scan (date and location): September 26, 2023. Estimated date of delivery (ALEXSANDRA) from first dating scan: April 11, 2024. The calculations are made using the ultrasound ALEXSANDRA of April 11, 2024. TECHNIQUE: Real-time scanning was performed of the fetus, with image documentation. Endovaginal scanning: Not performed COMPARISON: [facility], OB >= 14 WEEKS FETUS, 11/27/2023, 12:57. FINDINGS: A single living intrauterine gestation is present. Presentation: Breech. Placenta: Placental position is posterior, without previa. Amniotic fluid index: 20.7 cm, normal range is 5-24 cm. Single deepest vertical pocket is 5.6 cm. heart rate: 152 beats per minute. Maternal cervical canal: 3.6 cm long. Normal lower limit is 2.5 cm. Estimated gestational age from initial scan: 22 weeks and 1 day. Visualized left ventricular outflow track appears within normal limits. IMPRESSION: Single living intrauterine gestation with estimated gestational age of approximately 22 weeks and 1 day. Unremarkable appearance of the left ventricular outflow tract. Dictated by: Dontae Macias M.D. on 12/08/2023 at 9:14 Approved by: Dontae Macias M.D. on 12/08/2023 at 9:17
== END ==
PROVIDERS: PCP Registered Nurse Diabetes Educator; Referring Provider Student in an Organized Health Care Education/Training Program; Visit Provider Student in an Organized Health Care Education/Training Program
DX: Z34.82 Encounter for supervision of other normal pregnancy, second trimester (principal); Z3A.22 22 weeks gestation of pregnancy
CPT/HCPCS: 76816

== ENCOUNTER → 2024-01-12 10:19 | Outpatient (CLI) | payer OTHER, MEDICAID, SELFPAY ==
[2024-01-12 12:14] LABS: Hemoglobin 11.7 g/dL (12.0-16.0)
[2024-01-12 12:52] LABS: GTT (PREG) 1 Hour PP 50gm Dose 100 mg/dL (76-139)
== END ==
PROVIDERS: PCP Registered Nurse Diabetes Educator; Referring Provider Student in an Organized Health Care Education/Training Program; Visit Provider Student in an Organized Health Care Education/Training Program
DX: Z34.02 Encounter for supervision of normal first pregnancy, second trimester (principal); Z3A.26 26 weeks gestation of pregnancy
CPT/HCPCS: 82950; 85014; 85018

== ENCOUNTER → 2024-03-25 09:27 | Outpatient (CLI) | payer OTHER, MEDICAID, SELFPAY ==
[2024-03-26 09:45] LABS: Strep Grp B PCR POS for Grp B Strep
== END ==
PROVIDERS: PCP Registered Nurse Diabetes Educator; Visit Provider Student in an Organized Health Care Education/Training Program
DX: Z36.85 Encounter for antenatal screening for Streptococcus B (principal)
CPT/HCPCS: 87653

== ENCOUNTER 2024-04-16 03:29 | Inpatient (IN) | payer OTHER, MEDICAID, SELFPAY ==
[2024-04-16 04:17] LABS: Add Manual Diff / Slide Review NO; Basophils Absolute Auto 0 /uL (0-100); Basophils Percent Auto 0.2 % (0-2); Eosinophils Absolute Auto 100 /uL (0-450); Eosinophils Percent Auto 0.9 % (2-4); Hematocrit 36.4 % (36-46); Hemoglobin 12.3 g/dL (12.0-16.0); Lymphocytes Absolute Auto 3000 /uL (1100-4500); Lymphocytes Percent Auto 22.6 % (25-40); Mean Corpuscular HGB Conc 33.9 % (30-36); Mean Corpuscular Hemoglobin 29.5 PG (26-34); Mean Corpuscular Volume 86.8 fL (80-100); Monocytes Absolute Auto 700 /uL (0-900); Monocytes Percent Auto 5.1 % (3-14); Neutrophils Absolute Auto 9600 /uL (1500-7000); Neutrophils Percent Auto 71.2 % (50-75); Platelet Count 200 X10^3/uL (150-400); Red Blood Cell Count 4.19 X10^6/uL (4.0-5.2); Red Cell Distribution Width 14.7 % (11.6-14.8); White Blood Cell Count 13.5 X10^3/uL (4.5-11.0)
[2024-04-16] MEDS: AMPICILLIN 2,000 MG in SODIUM CHLORIDE 0.9% 100 ML 200 MG IV (04:20)
[2024-04-16] MEDS: LACTATED RINGERS 1,000 ML 100 ML IV ×2 (04:37→11:01)
--- NOTE | 2024-04-16 04:51 | PM.AN.REGBLK ---
[facility] <Noah Matthews, DO - Last Filed: 04/16/24 05:20> Pre-procedure Procedure: Continuous Lumbar Epidural for L&D Attending OB provider: Qi Singh PMH/ROS narrative: term labor, no medical or obstetric complications. Hx EtOH, sober x 4 years. ASA Class: II Labs: Hct 36.4 % (36-46) 04/16/24 03:53 Plt Count 200 X10^3/uL (150-400) 04/16/24 03:53 Medications: Current Medications Generic Name Dose Route Start Last Admin Trade Name Freq PRN Reason Stop Dose Admin Carboprost Tromethamine 250 mcg 04/16/24 04:03 Carboprost 250 Mcg/Ml Ampul IM Q90M PRN Bleeding Oxytocin/Lactated Ringer's 30 unit in 500 mls @ 200 mls/hr 04/16/24 04:03 Oxytocin Premix IV CONT PRN Bleeding Protocol Tranexamic Acid 1,000 mg/ 100 mls @ 600 mls/hr 04/16/24 04:03 Sodium Chloride IV NOW PRN Bleeding Lactated Ringer's 1,000 mls @ 100 mls/hr 04/16/24 04:15 04/16/24 04:37 Lactated Ringers IV 04/16/24 14:14 100 mls/hr CONT SONIYA Administration Lidocaine HCl 20 ml 04/16/24 04:03 Lidocaine 1% 20 Ml INJ INTRA-OP PRN Post Delivery Methylergonovine Maleate 0.2 mg 04/16/24 04:03 Methylergonovine 0.2 Mg Tablet PO Q6HR PRN Heavy Bleeding Methylergonovine Maleate 0.2 mg 04/16/24 04:03 Methylergonovine 0.2 Mg/Ml Vial IM NOW PRN Bleeding Mineral Oil 30 ml 04/16/24 04:03 Mineral Oil 30 Ml Udc TOP PRN PRN Version Misoprostol 800 mcg 04/16/24 04:03 Misoprostol 200 Mcg Tablet IA NOW PRN Bleeding Misoprostol 400 mcg 04/16/24 04:03 Misoprostol 200 Mcg Tablet SL NOW PRN Bleeding Naloxone HCl 0.2 mg 04/16/24 04:03 Naloxone 0.4 Mg/Ml Vial IV Q2MIN PRN Opiate Reversal Oxytocin 10 unit 04/16/24 04:03 Oxytocin 10 Unit/Ml Vial IM NOW PRN Bleeding Allergies: Allergies Allergy/AdvReac Type Severity Reaction Status Date / Time No Known Drug Allergies Allergy Verified 04/12/24 13:23 Procedure Insertion date: 04/16/24 Insertion time: 05:05 Prep/Local: betadine x3 and 1% lidocaine Interspace: L34 Patient position: sitting Needle: 18 gauge Hustead (CSE: 27g Pencan through Hustead, clear CSF, 1mL 0.25% bupiv MPF) Loss of resistance with: saline DARRELL at (cm): 6 Catheter placed at SKIN (cm): 12 Catheter in SPACE (cm): 6 Insertion: No CSF, No Blood, No Paresthesia with insertion, No Paresthesia with injection and No Test dose reaction Initial Medications TEST DOSE time: 05:05 TEST DOSE: 1.5% lidocaine with epinephrine 1:200k (mL): 3 BOLUS DOSE time: 05:15 BOLUS DOSE (mL): 5 BOLUS DOSE med: other (infusate) Infusion INFUSION: 0.125% bupivacaine and with fentanyl 2 mcg/mL Initial rate (mL/hr): 8 Post-procedure Anesthesia date START: 04/16/24 Anesthesia time START: 04:53 <Lelia Baron CRNA - Last Filed: 04/16/24 14:36> Post-procedure Anesthesia date END: 04/16/24 Anesthesia time END: 12:34 Post-procedure Anesthesia Assessment: Yes CV function: HR/BP stable, Yes Resp function: RR/sat/airway adequate, Yes Post-op hydration adequate, Yes Pain control adequate, Yes Nausea & vomiting absent, Yes Temperature > 36 C, Yes Mental status appropriate and No Anesthesia complications
[2024-04-16 05:30] VITALS: BP 121/70
--- NOTE | 2024-04-16 08:00 | P.HPOB_ITS ---
OB HPI Date/Time Date of admission: 04/16/24 Date Patient Seen: 04/16/24 Time Patient Seen: 08:00 History of Present Condition Chief complaint: labor : 5 Para: 3 Estimated Date of Delivery: 04/13/24 Estimated Gestational Age (weeks): 40+3 Narrative: Rita Mckeon is a 29 year old female Comments: admitted this morning in active labor. History of Present care: good care Dating criteria: LMP confirmed by 1st trimester US Ultrasounds: normal mid trimester US Narrative: Ultrasound Ultrasound Details:: Dating US 08/29/23: vick IUP measuring 7+3wks (CRL 1.27cm); + FCA; subchorionic hemorrhage noted; normal uterus, cervix, and bilateral ovaries Anatomy US 11/27/23: posterior placenta, EFW 86%ile, LVOT not visualized F/u US 12/08/23: LVOT within normal Specific Issues/Plans [ x] cfDNA- low risk XY; [x ] CF/SMA- neg; [ x] MSAFP- neg GBS positive Depression/anxiety, currently well managed on escitalopram and bupropion Working on quitting vaping--> provided smoking cessation class info; quit as of 10/24/23 Hx ETOH abuse, sober ~4 years Obesity (pre-preg BMI 30) S/O Sumeet Assigned to [facility] Preadmission Labs Blood type: O (+) positive -: Antibody screen: negative, Cystic fibrosis screen: negative, GBS status: positive, HBsAG: negative, HIV: negative, HSV 1: unknown, HSV 2: unknown and RPR/VDLR: negative -: Chlamydia screen: not detected and Gonorrhea screen: not detected -: Rubella: immune and Varicella: immune HCT: 36.4 HCAB: negative PAP: Normal 1 hr GTT: 100 Evaluation Evaluation Baseline heart rate: 130 Variability: Moderate (11-25) monitor accelerations: Present Monitor Decelerations: Absent Status: Category l Dilation (cm): 6 Effacement (%): 90 station: -1 Comments: AROM performed at 7:55am, clear fluid [facility] Medical History (Updated 04/11/24 @ 10:04 by Viviane Valente PA-C) Depression Nicotine addiction (2018) Alcohol abuse, 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) Cystic acne Benign positional vertigo (10/2019) Chlamydia (~2018) Breakthrough bleeding Encounter for surveillance of contraceptive pills Gout (~2013) Surgical History (Updated 08/18/23 @ 08:37 by Brittny Whitley RN) [place] teeth extracted Family History (Updated 08/18/23 @ 08:58 by Brittny Whitley, RN) Mother Depression Anxiety Father Cluster headaches Grandmother Diabetes mellitus Daughter Microtia of right ear Microtia with meatal atresia and conductive deafness Social History marital status: unmarried,living together number of children: 3 household members: significant other and children lives independently: Yes caregiver/support person: Yes housing: house pets and animals: Yes (snake (pt doesn't handle it often)) education level: college (some college) occupational status: employed 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 travel history: over 6 months ago seatbelt use: always water heater temp set < 120 deg: Yes working smoke detector in home: Yes fire extinguisher in home: Yes carbon monox detector in home: Yes firearms in home: No do you feel safe at home: Yes Smoking Status: Former smoker second hand exposure: No alcohol intake: former (sober about 4 years) substance use type: does not use during the past year weight has: decreased > 10 lbs (~15 lb lost in February w/ Covid) well-balanced diet: about half the time (good fruit/veg intake, but snacks on unhealthy foods) daily servings fruits/ve or more times/day caffeine: Yes (1-2 cups coffee/day) Type(s) of exercise: aerobic and weight lifting frequency: 3-4 times per week Meds Home Medications and Allergies Home Medications Medication Instructions Recorded Confirmed Type tretinoin 0.025 % topical cream 1 applic topical BEDTIME #20 grams 05/28/23 04/12/24 Rx (Retin-A) vitamin-ferrous sulfate tab PO 08/18/23 04/12/24 History 27 mg iron-folic acid 0.8 mg tablet Allergies Allergy/AdvReac Type Severity Reaction Status Date / Time No Known Drug Allergies Allergy Verified 04/12/24 13:23 Review of Systems Review of Systems ROS: Yes All systems reviewed with the patient and are negative except as otherwise documented OB Exam Vital signs Blood Pressure: 112/71 Pulse Rate: 83 Respiratory Rate: 16 Temperature: 96.3 F HENMT Head: normal to inspection Resp Effort & Inspection: normal respiratory effort and able to speak in complete sentences Extremities Lower extremity: Yes normal to inspection GI Other: gravid, nontender, nondistended Objective Labs 04/16/24 03:53 Labs: Laboratory Results - last 24 hr 04/16/24 03:53 WBC 13.5 H RBC 4.19 Hgb 12.3 Hct 36.4 MCV 86.8 MCH 29.5 MCHC 33.9 RDW 14.7 Plt Count 200 Neut % (Auto) 71.2 Lymph % (Auto) 22.6 L [place] % (Auto) 5.1 Eos % (Auto) 0.9 L Baso % (Auto) 0.2 Neut # (Auto) 9600 H Lymph # (Auto) 3000 [place] # (Auto) 700 Eos # (Auto) 100 Baso # (Auto) 0 Blood Type O Positive Antibody Screen Negative Assessment and Plan Assessment and Plan Assessment and Plan narrative: 29yo at 40+3wks admitted in active labor. -CBC, T&S on admission -continuous EFM -epidural PRN -GBS positive, started on ampicillin -PPH risk low -VTE risk low, SCDs with epidural -anticipate L&D Counseling: Common procedures and interventions related to the management of were explained to the patient, including assistance at vaginal delivery with episiotomy, vacuum, or forceps, use of medications to stop premature labor or induce labor, and assessment including auscultation (listening to the heart), use of electronic monitoring (external and / or internal), and use of scalp electrode and/or intrauterine pressure catheter.? It was also explained that approximately 20-30% of mothers have a need for delivery during their labor course. It was explained to the patient that , labor and delivery are ordinarily normal physiological events and can be expected to provide a healthy outcome for mother and baby in the majority of cases. However, there are complications that may arise during , labor, and delivery, such as: hemorrhage requiring administration of blood and/or blood products, surgical intervention, possibly even hysterectomy for life-saving purposes; possibility of infection requiring antibiotics, prolonged hospital stay, and rarely surgical intervention; possibility of blood clots;? possibility of retained products of conception requiring surgical intervention;? possibility of serious tears or injury to the vagina, cervix, perineum, or rectum;? possibility of injury to abdominal structures if delivery is required;? and rarely maternal or may occur. Time-Based Coding :: [30min] spent with patient and on the chart (including review of chart, obtaining history, exam, reviewing outside data, placing orders, documenting exam and treatment plan, and counseling patient) on [04/16/24].
[2024-04-16 08:08] VITALS: BP 112/71; PULSE 83; RESP 16; TEMP 35.7
[2024-04-16] MEDS: AMPICILLIN 1,000 MG in SODIUM CHLORIDE 0.9% 100 ML 200 MG IV (08:32)
[2024-04-16] MEDS: ONDANSETRON 4 MG/2 ML INJ IV (11:00)
[2024-04-16] MEDS: FENT 2MCG/ML BUPIV 0.125% EPI 200 MCG/100 ML PLAST..BAG 6 MCG EPIDURAL (11:27)
[2024-04-16] MEDS: OXYTOCIN PREMIX 30 UNIT/500 ML PLAST..BAG 200 UNIT IV (12:40)
--- NOTE | 2024-04-16 12:57 | PM.OBPRVD ---
Labor & Delivery Delivery date: 04/16/24 Intrapartal Events: None Delivery augmentation: rupture of membranes Delivery monitor: external FHT and external uterine Route of delivery: L&D Laceration Description: None Estimated blood loss (mL): 300 Anesthesia Type: Epidural Complications: none Narrative: The patient progressed to C/C/+1 with epidural anesthesia. After approximately 20min of maternal pushing efforts, the infant delivered in OA position and restituted ROT. The anterior shoulder delivered with gentle downward pressure. The posterior shoulder and rest of body delivered with ease. The cord was doubly clamped and cut after a 60sec delay with the infant placed on maternal abdomen. The placenta delivered spontaneously and was intact with a 3-vessel cord. The fundus was noted to be firm with bimanual massage and pitocin. Inspection of the cervix, vagina, and perineum was notable for no lacerations. All sponges were removed from the vagina. The patient tolerated delivery well and remained in the labor room with the at the bedside. Baby 1: Infant gender: Male Presentation: vertex Placenta delivery description: Spontaneous Cord Vessel Description: 3 Vessels score (1 min): 7 score (5 min): 9 weight: 8 lb 9.71 oz Plan for aftercare: Routine care
--- NOTE | 2024-04-17 09:59 | PM.OBDS.1 ---
Discharge Providers Provider Date of admission: 04/16/24 03:29 Discharge Date: 04/17/24 Primary care physician: STEFFI Fenton Consults: 04/16/24 04:04 Consult to Anesthesiology Urgent Comment: Consulting Provider: Noah Matthews Reason for consultation: Epidural 04/17/24 12:56 Consult to Ventilating Equipment Installer Routine Comment: Discharge provider: Cy Wallis MD Summary Hospital Course Date Patient Seen: 04/17/24 Time Patient Seen: 10:00 Diagnoses: Intrauterine gestation, 40+ 3 weeks, delivered by spontaneous vaginal Hospital Course: Chriss was admitted on the morning of 04/16/2024 in early labor and progressed well with an epidural in place delivering a viable male infant with Apgars of 7/9 and a weight of 8 lb 9.71 oz that afternoon. Following delivery both mother and baby have done extremely well with the mother experiencing prompt return of bowel and bladder function, she is ambulating independently, tolerating regular diet, and her pain is well relieved with oral pain medications. She will be discharged at this time to home in an afebrile normotensive condition after counseling regarding precautionary symptoms, limitations activity, medications, and plans for follow-up which will be in 6 weeks. Medications at discharge will include resumption of pre admission medications and she will use [id number] Tylenol/ibuprofen as needed for pain relief. Peripartum Data Infant Delivery Method: Natural Vaginal Laceration Description: None and Perineal - 1st Degree (No repair required) Episiotomy description: None Procedures: Continuous lumbar epidural Spontaneous vaginal delivery complications: none [place] 1: Gender: Male Disposition of : home Status at Discharge Cognitive/behavioral status at discharge: oriented Functional status at discharge: independent ambulation Overall status at discharge: patient is progressing back to baseline Time Spent with Patient Time attestation: Total time spent providing and/or coordinating discharge services: Time spent: Less than 30 minutes Objective Labs 04/16/24 03:53 Exam Const General: cooperative and healthy appearing [facility] Head: normal to inspection, normocephalic and atraumatic Eyes General: appearance normal, both eyes and all related structures Neck Neck: normal visual inspection Resp Effort & Inspection: normal respiratory effort and able to speak in complete sentences GI Inspection: normal to inspection Palpation: soft, no hepatosplenomegaly and mass (Firm, nontender fundus, U -3) External Female Exam: laceration (Superficial, no bleeding) and other (Light lochia) Extrem Right lower extremity: normal to inspection Discharge Plan Discharge Plan Patient Disposition: Home Provider Discharge Comment: Please review the written instructions you received when you were discharged from the hospital. Your follow-up appointment with Dr. Singh is scheduled for 6 weeks after your delivery and we look forward to seeing you then. If however in the meanwhile you have any issues, concerns, or questions, you can contact Dr. Singh by phone at [phone], or via the patient portal. Discharge orders & Medications Prescriptions: Continued vit-ferrous sulfat-FA 27 mg iron- 0.8 mg tablet PO tretinoin [Retin-A] 0.025 % cream 1 applic topical BEDTIME Qty: 20 3RF Follow up/Referrals: Chun Green ARNP [Primary Care Provider] - Discharge Health Status Multidrug resistant organism: No MDRO Diet/Activity/Treatments Diet: Diet as Tolerated Activity: As tolerated Other treatments: [id number] Tylenol and/or ibuprofen may be used for pain relief. [id number] stool softeners and/or MiraLax may be used as needed for constipation. Skin/Wound/Dressing Care Report to your healthcare provider any signs of infection, such as:: chills, fever, increased pain, unusual drainage and unusual redness Dressing: N/A Visit Report/Discharge Packet Instructions: DI for Labor and Delivery, Vaginal , DI for and Nipple Soreness Discharge Data Primary Care Provider: Chun Green
== END 2024-04-17 11:00 | disposition home or self-care (01) | DRG 560 ==
PROVIDERS: Obstetrics & Gynecology; Admitting Provider Student in an Organized Health Care Education/Training Program; PCP Registered Nurse Diabetes Educator; Referring Provider Student in an Organized Health Care Education/Training Program; Visit Provider Student in an Organized Health Care Education/Training Program
DX: O99.824 Streptococcus B carrier state complicating childbirth (principal); Z3A.40 40 weeks gestation of pregnancy; Z37.0 Single live birth
CPT/HCPCS: 36415; 59050; 85025; 86850; 86900; 86901; G0379; J0290; J2405; J2590

== ENCOUNTER → 2024-05-11 10:30 | Outpatient (CLI) | payer OTHER, MEDICAID, SELFPAY ==
[2024-05-11 11:38] LABS: TSH w/ Reflex to FT4 1.22 uIU/mL (0.47-4.68)
[2024-05-11 12:37] LABS: Prolactin 14.1 ng/mL (3.0-18.6)
[2024-05-11 12:38] LABS: Ferritin 47 ng/mL (6-137)
== END ==
PROVIDERS: PCP Registered Nurse Diabetes Educator; Visit Provider Family Medicine
DX: O92.4 Hypogalactia (principal)
CPT/HCPCS: 82728; 84146; 84443

== ENCOUNTER → 2024-05-12 14:28 | Outpatient (CLI) | payer OTHER, MEDICAID, SELFPAY ==
[2024-05-12 15:05] LABS: Prolactin 42.2 ng/mL (3.0-18.6)
== END ==
PROVIDERS: PCP Registered Nurse Diabetes Educator; Visit Provider Family Medicine
DX: O92.4 Hypogalactia (principal)
CPT/HCPCS: 84146

== ENCOUNTER 2024-10-27 07:27 | Emergency (ER) | payer OTHER, SELFPAY ==
[2024-10-27 07:35] VITALS: BP 129/73; PULSE 67; RESP 18; TEMP 37.1; O2SAT 98; BMI 31.1
--- NOTE | 2024-10-27 07:53 | ED_ITS ---
HPI - URI/Sore Throat General Chief Complaint: Upper Respiratory Symptoms Stated Complaint: Sinus pressure Time Seen by Provider: 10/27/24 07:44 Source: patient Mode of arrival: Ambulatory History of Present Illness HPI Narrative: patient healthy 29-year-old female presenting to day with a headache andSinus pressure. Reports that she just got over cold yesterday she started feeling some pressure in her sinuses took Tylenol ibuprofen alternating yesterday without any significant relief. Today she has a pretty significant headache hurts to move she was feels dizzy lightheaded. no fever or denies any nausea vomiting or weakness. Related Data Home Medications Medication Instructions Recorded Confirmed vitamin-ferrous sulfate tab PO 08/18/23 05/31/24 27 mg iron-folic acid 0.8 mg tablet Previous Rx's Medication Instructions Recorded tretinoin 0.025 % topical cream 1 applic topical BEDTIME #20 grams 05/28/23 (Retin-A) levonorgestrel 0.15 mg-ethinyl See Rx Instructions PO .COMPLEX 05/31/24 estradiol 30 mcg tablets,3 mos #273 ea pack(91) OXYTOCIN 10 U/SPRAY See Rx Instructions intranasal 06/07/24 .COMPLEX #30 mL Allergies Allergy/AdvReac Type Severity Reaction Status Date / Time No Known Drug Allergies Allergy Verified 05/31/24 10:16 Patient History Medical History (Updated 10/27/24 @ 09:32 by Kendra Vail DO) Depression Nicotine addiction (2018) Alcohol abuse, 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) Cystic acne Benign positional vertigo (10/2019) Chlamydia (~2018) Breakthrough bleeding Encounter for surveillance of contraceptive pills Gout (~2013) Surgical History (Updated 08/18/23 @ 08:37 by Brittny Whitley RN) [place] teeth extracted Family History (Updated 08/18/23 @ 08:58 by Brittny Whitley RN) Mother Depression Anxiety Father Cluster headaches Grandmother Diabetes mellitus Daughter Microtia of right ear Microtia with meatal atresia and conductive deafness Social History marital status: unmarried,living together number of children: 3 household members: significant other and children lives independently: Yes caregiver/support person: Yes housing: house pets and animals: Yes (snake (pt doesn't handle it often)) education level: college (some college) occupational status: employed 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 travel history: over 6 months ago seatbelt use: always water heater temp set < 120 deg: Yes working smoke detector in home: Yes fire extinguisher in home: Yes carbon monox detector in home: Yes firearms in home: No do you feel safe at home: Yes second hand exposure: No alcohol intake: former (sober about 4 years) substance use type: does not use during the past year weight has: decreased > 10 lbs (~15 lb lost in February w/ Covid) well-balanced diet: about half the time (good fruit/veg intake, but snacks on unhealthy foods) daily servings fruits/ve or more times/day caffeine: Yes (1-2 cups coffee/day) Type(s) of exercise: aerobic and weight lifting frequency: 3-4 times per week tobacco type: vaping alcohol intake frequency: 0-2 drinks per day Exam Initial Vital Signs Initial Vital Signs: Vital Signs Temperature 98.7 F 10/27/24 07:35 Pulse Rate 67 10/27/24 07:35 Respiratory Rate 18 10/27/24 07:35 Blood Pressure 129/73 10/27/24 07:35 Pulse Oximetry 98 10/27/24 07:35 Oxygen Delivery Method Room Air 10/27/24 07:35 GENERAL: Alert 29-year-old female appears to not feel well HEENT: Head atraumatic,EOMI, pupils reactive, tender over frontal and zygomatic sinuses decreased range of motion in neck CARDIOVASCULAR: Regular rate and rhythm without murmurs, rubs or gallops. RESPIRATORY: Breath sounds equal bilaterally, no wheezes rales or rhonchi. ABDOMEN: Soft, nontender. Normoactive bowel sounds all 4 quadrants. No guarding or rebound. EXTREMITIES: Normal range of motion, no clubbing or edema. Neurovascularly intact NEUROLOGICAL: Alert and oriented x4.Normal gait and speech. Cranial nerves II through XII grossly intact. patient financial counselor strength equal bilaterally moving both extremities SKIN: Warm, dry, no laceration, no petechiae, no rashes or lesions. Course Orders Ordered: Discontinued Medications Ketorolac Tromethamine (Ketorolac 30 Mg/Ml Vial) 30 mg IM NOW ONE Stop: 10/27/24 08:01 Last Admin: 10/27/24 08:17 Dose: 30 mg Documented By: MARELY Vital Signs Vital signs: Vital Signs - 8 hr 10/27/24 07:35 Temperature 98.7 F Pulse Rate 67 Respiratory Rate 18 Blood Pressure 129/73 Pulse Oximetry 98 Oxygen Delivery Method Room Air MDM - URI/Sore Throat MDM Narrative Medical decision making narrative: Patient healthy 29-year-old female presenting today with headache face pressure just got out where cold. She has not taken any Tylenol or ibuprofen this morning she was afebrile and vitals are stable. She was given a shot of Toradol. However patient left prior to my re-evaluation. It is unclear if Toradol helped. She did not tell anyone she was leaving, nursing staff unaware that she left. Discharge Plan Departure Patient Disposition: Elopement Clinical Impression: Headache Prescriptions: No Action OXYTOCIN 10 U/SPRAY solution See Rx Instructions intranasal .COMPLEX MDD 12 Qty: 30 0RF Rx Instructions: 2-5 SPRAYS intranasally 5 MINUTES PRIOR TO BREAST FEEDING (UP TO 12 TIMES DAILY); ALTERNATE NOSTRILS FOR EACH DOSE. vit-ferrous sulfat-FA 27 mg iron- 0.8 mg tablet PO levonorgestrel-ethinyl estrad 0.15 mg-30 mcg (91) tablets,dose pack,3 month See Rx Instructions PO .COMPLEX Qty: 273 0RF Rx Instructions: take 1 tablet daily following the order on blister card(s) PO tretinoin [Retin-A] 0.025 % cream 1 applic topical BEDTIME Qty: 20 3RF Referrals: Chun Green ARNP [Primary Care Provider] -
[2024-10-27] MEDS: KETOROLAC 30 MG/ML VIAL IM (08:17)
== END 2024-10-27 09:15 | disposition left against medical advice (07) ==
PROVIDERS: Emergency Provider Emergency Medicine; PCP Registered Nurse Diabetes Educator
DX: R51.9 Headache, unspecified (principal)
CPT/HCPCS: 96372; 99283; J1885

== ENCOUNTER → 2025-03-04 13:33 | Outpatient (CLI) | payer OTHER, SELFPAY ==
[2025-03-04 18:44] LABS: Blood Urea Nitrogen 10 mg/dL (7-17); Calcium 9.4 mg/dL (8.4-10.2); Carbon Dioxide 28 mmol/L (22-32); Chloride 103 mmol/L (98-107); Estimated Glomerular Filt Rate > 60 mL/min (>60); Glucose 76 mg/dL (70-99); HEMOLYSIS < 15 (0-50); Potassium 4.4 mmol/L (3.4-5.1); Sodium 141 mmol/L (137-145)
== END ==
LOC: LAB 13:34
PROVIDERS: PCP Registered Nurse Diabetes Educator; Referring Provider Registered Nurse Diabetes Educator; Visit Provider Registered Nurse Diabetes Educator
DX: L70.0 Acne vulgaris (principal); Z79.899 Other long term (current) drug therapy
CPT/HCPCS: 36415; 80048

== ENCOUNTER → 2025-06-02 12:14 | Outpatient (CLI) | payer OTHER, SELFPAY ==
[2025-06-02 12:39] LABS: Add Manual Diff / Slide Review NO; Hematocrit 42.4 % (36-46); Hemoglobin 14.4 g/dL (12.0-16.0); Lymphocytes Absolute Auto 4600 /uL (1100-4500); Mean Corpuscular HGB Conc 34.0 % (30-36); Mean Corpuscular Hemoglobin 30.8 PG (26-34); Mean Corpuscular Volume 90.5 fL (80-100); Platelet Count 304 X10^3/uL (150-400)
[2025-06-02 13:11] LABS: Alanine Aminotransferase 18 IU/L (<35); Albumin 4.4 g/dL (3.5-5.0); Albumin Globulin Ratio 1.7 (1.0-2.8); Alkaline Phosphatase 44 U/L (38-126); Blood Urea Nitrogen 17 mg/dL (7-17); Calcium 9.9 mg/dL (8.4-10.2); Carbon Dioxide 28 mmol/L (22-32); Chloride 102 mmol/L (98-107); Estimated Glomerular Filt Rate > 60 mL/min (>60); Globulin 2.6 g/dL (1.7-4.1); Glucose 71 mg/dL (70-99); HEMOLYSIS < 15 (0-50); Potassium 4.2 mmol/L (3.4-5.1); Sodium 138 mmol/L (137-145); Total Protein 7.0 g/dL (6.3-8.2)
[2025-06-02 13:37] LABS: TSH w/ Reflex to FT4 0.88 uIU/mL (0.47-4.68)
== END ==
PROVIDERS: PCP Registered Nurse Diabetes Educator; Referring Provider Registered Nurse Diabetes Educator; Visit Provider Registered Nurse Diabetes Educator
DX: R51.9 Headache, unspecified (principal); R79.89 Other specified abnormal findings of blood chemistry
CPT/HCPCS: 36415; 80053; 84146; 84443; 85025